=== PATIENT | female | born 1945 | race Caucasian/White ===

== ENCOUNTER 2017-07-27 10:06 | Emergency (ER) | payer MEDICARE ==
--- NOTE | 2017-07-27 10:29 | CT ---
CT BRAIN PERFORMED WITHOUT CONTRAST ENHANCEMENT: HISTORY: Right-sided weakness. Facial droop. Slurred speech started yesterday. FINDINGS: There is some mild ventricular and sulcal prominence. There are no signs of intracerebral hemorrhage or extraaxial fluid collections. The mastoid air cells and visualized sinuses are clear. IMPRESSION: No acute intracranial abnormalities. Findings telephoned to Dr. Rodriguez at 1018 hours. CODE CR POS: [facility]
[2017-07-27 10:32] LABS: #Basophils 0.1 thou/uL (0.0-0.2); #Eosinphils 0.1 thou/uL (0.0-0.7); #Monocytes 0.7 thou/uL (0.11-0.59); #Neutrophils 10.7 thou/uL (1.40-6.50); %Basophils 0.5 % (0.0-1.0); %Lymphocytes 20.6 % (21.0-51.0); %Monocytes 4.8 % (0.0-10.0); Mean Platelet Volume 8.2 fL (7.4-10.4); Red Blood Cell (RBC) Count 3.68 mill/uL (4.20-5.40); White Blood Cell (WBC) Count 14.6 thou/uL (4.8-10.8)
[2017-07-27 10:44] LABS: Prothrombin Time 13.5 SEC (12.0-14.7)
[2017-07-27 10:54] LABS: ALT (SGPT) 23 U/L (8-55); AST (SGOT) 20 U/L (5-34); Alkaline Phosphatase 88 U/L (40-150); Anion Gap 15 mmol/L (10-20); BUN (Urea Nitrogen) 22 mg/dL (9.8-20.1); Bilirubin, Total 0.6 mg/dL (0.2-1.2); Calc. Creatinine Clearance 0 mL/min (70-130); Calcium 8.8 mg/dL (7.8-10.44); Carbon Dioxide 21 mmol/L (23-31); Chloride 106 mmol/L (98-107); Estimated GFR-MDRD 60; Globulin 2.6 g/dL (2.4-3.5); Protein, Total 5.8 g/dL (6.0-8.3)
[2017-07-27 10:56] LABS: PTT 22.3 SEC (22.9-36.1)
[2017-07-27 10:58] LABS: Troponin I Less than 0.010 ng/mL (< 0.028)
--- NOTE | 2017-07-27 11:16 | RAD ---
PORTABLE CHEST 1 VIEW: Date: 07/27/17 Time: 1053 hours HISTORY: Slurred speech, left-sided weakness. FINDINGS: Comparison made with exam of 11/20/12. The heart size is borderline. No confluent areas of consolidation, pneumothorax, michael pulmonary enrike a, or pleural effusions are seen. IMPRESSION: No acute process. POS: [facility]
[2017-07-27 11:43] LABS: Bilirubin Negative (Negative); Blood, Urine Trace (Negative); Glucose, Urine (Dipstick) 100 mg/dL (Negative); Ketone, Urine Negative (Negative); Nitrite Negative (Negative); Protein, Urine (Dipstick) 100 mg/dL (Neg-Trace); Urobilinogen 0.2 mg/dL (0.2-1.0)
[2017-07-27 11:45] LABS: Bacteria/HPF None Seen HPF (None Seen); Squamous Epithelial 0-3 HPF (0-3); WBC/HPF 0-3 HPF (0-3)
[2017-07-27 12:00] LABS: Hyaline Casts/LPF 0-3 HYALINE CAST LPF (0-3 Hyaline); RBC/HPF 0-3 HPF (0-3); Renal Epithelial None Seen HPF (0-3); Transitional Epithelial NONE SEEN HPF (0-3)
[2017-07-27] MEDS ORDERED: Acetaminophen 1,000 MG in Premix Bag 1 BAG IVPB SCH (13:00)
--- NOTE | 2017-07-27 13:03 | CT ---
CT ANGIOGRAM THORAX WITH IV CONTRAST AND 3D RECONSTRUCTIONS CT ANGIOGRAM ABDOMEN WITH IV CONTRAST AND 3D RECONSTRUCTIONS CT PELVIS WITH IV CONTRAST DELAYED IMAGING: Date: 07/27/17 HISTORY: Patient with stroke-like symptoms with reported slurred speech 1 day ago. Patient now complains of we akness and does not having feeling in either leg. Patient also reports mid back pain, as well as bila teral lower extremity pain and abdominal pain when getting out of bed this morning. Patient denies re cent injury or fall. FINDINGS: CT ANGIOGRAM THORAX: There is dependent atelectasis bilaterally. There are a few scattered linear densities, probably rela aries to mild atelectasis, as well. No discrete pulmonary nodule, mass, or pleural effusion is present. Thoracic aorta is normal in caliber without evidence of an aortic dissection. There is normal arrange ment of the great vessels at the aortic arch which are patent. No filling defects are seen in the pulmonary arteries to suggest a pulmonary embolus. There is no evidence of lymphadenopathy and mediastinal structures have a normal CT appearance. CT ANGIOGRAM ABDOMEN: The abdominal aorta is normal in caliber. There are atherosclerotic vascular calcifications in the ab dominal aorta, greater involving the infrarenal abdominal aorta. The celiac artery demonstrates mild atherosclerotic plaque at the origin and proximally. However, there is generalized small caliber of t he celiac and superior mesenteric arteries which are otherwise patent. Origin of the LOU is not well seen due to dense atherosclerotic vascular calcifications. There are single renal arteries bilaterall y with mild atherosclerotic plaque. No significant focal stenosis is seen involving either renal geno ry. The bilateral common iliac, as well as most proximal visualized external iliac arteries are paten t. There is mild atherosclerotic irregularity involving each proximal internal iliac artery. A [employer] IVC filter is noted in place with the tip at the level of the renal veins. There is reflux of contrast into the hepatic IVC with reflux of contrast in the IVC extending to the level of the IV C filter. The IVC proximal to the IVC filter which involves the hepatic and subhepatic IVC is small i n caliber. The IVC at the level of the IVC filter is distended, and inferior to the level of the IVC in the infrarenal IVC, the IVC is enlarged and demonstrates heterogeneity. There is also mild enlarge ment of the common iliac veins. Findings could be related to thrombus within the IVC below the level of the IVC filter and extending into the common iliac veins. The burnham of the IVC and common iliac ve ins also appear mildly thickened. Again, this may be related to thrombus, but hemorrhage within the w all of the IVC is not entirely excluded. In addition, there is increased density fluid seen in a payal caval location, predominantly anterior and to the right of the IVC anterior to the right psoas muscle . Some of the increased density material does extend anterior to the abdominal aorta. However, these findings do not appear to represent an aortic injury and the aorta densely enhances with the contrast . The increased density fluid is most likely related to hemorrhage. There is a subtle area of slight enhancement in the inferior aspect of the liver which is not seen on delayed images and is probably related to a transient hepatic arterial difference due to phase of im aging. Gallbladder is not visualized and probably related to prior cholecystectomy. Spleen and bilateral adrenal glands demonstrate a normal CT appearance. There are subcentimeter, too small to characterize, hypodense lesions in each kidney. There is a midline fat-containing ventral abdominal wall hernia. CT PELVIS (DELAYED IMAGING): There is contrast seen in a decompressed urinary bladder. Wolfe catheter is noted in place. Uterus is not visualized, probably related to prior hysterectomy. IMPRESSION: 1. Enlargement and heterogeneity of the IVC inferior to the level of the IVC filter and renal veins with enlargement and heterogeneity of each common iliac vein. There is thickening involving the wall of the IVC as well. Findings may be related to thrombus within the IVC and common iliac veins, althou gh the thickening of the wall could potentially be related to associated hemorrhage. There is hemorrh age within the retroperitoneum in a pericaval location. While the hemorrhage extends anterior to the abdominal aorta, the etiology for the hemorrhage is not thought to arise from the abdominal aorta. Th e abdominal aorta is densely opacified, and there is no extravasation of contrast or aneurysmal dilat ation of the abdominal aorta is present. 2. No evidence of a dissection or aneurysm involving the thoracic or abdominal aorta. Atheroscleroti c plaque involves the abdominal aorta. 3. Hiatal hernia with what appear to be postsurgical changes at the level of the hiatal hernia, and findings may be related to fundoplication type procedure. 4. Fat-containing supraumbilical ventral abdominal wall hernia. 5. Subcentimeter, too small to characterize, hypodense lesions in each kidney. 6. No CT evidence of pulmonary embolus. 7. IVC filter noted in place. There are linear areas of increased density seen within the IVC filter which have a similar density to the adjacent struts of the IVC filter, but are of uncertain etiology . Above findings discussed with Dr. Wu in the emergency department on 07/27/17 at 1122 hours. CODE CR.
--- NOTE | 2017-07-27 14:57 | MRI ---
MRI THORACIC SPINE: HISTORY: Low back pain. TECHNIQUE: Multiplanar, multisequence noncontrast MRI of the thoracic spine obtained. FINDINGS: Images demonstrate the spinal cord to be unremarkable. No evidence of cord abnormality is seen. The re is a mid thoracic left paracentral disk protrusion minimally but not significantly compressing the thecal sac, with adjacent areas of endplate sclerotic signal changes. No significant evidence of ce ntral stenosis or significant neural foraminal narrowing is seen. No other significant thoracic spin e abnormalities seen. No evidence of acute or old compression fracture seen. IMPRESSION: Small left paracentral disk protrusion in the left paracentral mid thoracic region. No significant e vidence of central stenosis or significant neural foraminal narrowing is seen. This left paracentral protrusion appears to be at the T8-T9 level. POS: NE[facility]A
[2017-07-27] MEDS ORDERED: DOPamine 400 MG/D5W 250 ML 250 ML ONE (15:03)
[2017-07-27 16:05] LABS: #Eosinphils 0.3 thou/uL (0.0-0.7); #Lymphocytes 1.2 thou/uL (1.20-3.40); #Monocytes 0.7 thou/uL (0.11-0.59); #Neutrophils 17.4 thou/uL (1.40-6.50); %Basophils 0.1 % (0.0-1.0); %Eosinophils 1.3 % (0.0-10.0); %Lymphocytes 6.1 % (21.0-51.0); %Monocytes 3.7 % (0.0-10.0); Hematocrit 31.7 % (36.0-47.0); Mean Platelet Volume 8.5 fL (7.4-10.4); Red Blood Cell (RBC) Count 3.16 mill/uL (4.20-5.40); White Blood Cell (WBC) Count 19.6 thou/uL (4.8-10.8)
[2017-07-27 16:20] LABS: Anion Gap 13 mmol/L (-14-95); Lactate 2.94 mmol/L (0.50-2.20); POC Est. GFR-MDRD-African-Amer Greater than 60; POC Estimated GFR-MDRD Greater than 60; T. Carbon Dioxide 13.7 mmol/L (1.0-85.0); pH (Venous) 7.418 (7.35-7.45); vO2 Saturation-calc 96.2 % (0.0-100.0)
[2017-07-27] MEDS ORDERED: Norepinephrine 8 MG/0.9% NS 250 ML ONE (16:49)
--- NOTE | 2017-07-27 17:00 | ULT ---
HISTORY: Bilateral lower extremity pain and swelling. Multiple longitudinal and transverse images of the right and left lower extremity venous system obtai britney using a multihertz linear array transducer. Real time color flow and spectral waveform doppler an alysis demonstrates complete filling of the right and left common femoral, superficial femoral, and p opliteal veins with extension of clot into the right and left post trifurcation veins. This is compat ible with extensive and massive bilateral lower extremity deep venous thrombosis. Dr. Mas is awar e of these findings. IMPRESSION: Extensive massive bilateral lower extremity deep venous thrombosis. POS: [facility]
[2017-07-27 17:03] LABS: Oxyhemoglobin 92.2 % (94.0-97.0); Sodium 139 mmol/L (135-148)
[2017-07-27 17:05] LABS: Mode RA; Modified Allen's Test POSITIVE; Vent NO
--- NOTE | 2017-07-27 17:09 | CON ---
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 ER reports that initially on arrival the patient's lower extremities were cool, mottled with decreased pulses, therefore , CTA of the chest, abdomen, and pelvis which was done. CTA was notable for large retroperitoneal hematoma. There was also enlargement/thickening inferior to the IVC, which could indicate thrombus. No dissection or aneurysm was seen today abdominal or thoracic aorta. The patient denies any recent trauma. She is not currently on any blood thinners. Further evaluation also was notable for patient's hypotension 80s/50s and there was concern of possible underlying spinal shock. She had an elevated lactic acid of 4.2. Her INR was 1.0 and her platelets were normal at 227. I saw the patient in the ER. She was uncomfortable and complaining of low back and diffuse leg pain. She had weakness throughout the lower extremities 2/5. She was hyperreflexic throughout the lower extremities. The legs were cool with mottled appearance and also difficulty palpating any peripheral pulses in the lower extremities. She had negative clonus. PAST MEDICAL HISTORY: Asthma, anxiety, DVTs with IVC filter, hypertension, ulcers, diverticulitis. PAST SURGICAL HISTORY: Hernia repair, hysterectomy, IVC filter, cholecystectomy. FAMILY HISTORY: Noncontributory. SOCIAL HISTORY: The patient does not smoke, drink or use any drugs. ALLERGIES: She is allergic to CODEINE AND MORPHINE. PHYSICAL EXAMINATION: VITAL SIGNS: Blood pressure 62/48, pulse is 81, respiration rate is 17, temperature is 97.3. The patient is 98% on room air. HEAD: Normocephalic, atraumatic. EYES: PERRLA. Extraocular movements are intact. ENT: Oral mucosa is pink, intact and moist. NECK: Nontender to palpation. Free active range of motion. No meningismus or nuchal rigidity. RESPIRATORY: The patient is breathing comfortably. No evidence of respiratory distress. CARDIOVASCULAR: Regular rate and rhythm. BACK: Free active range of motion of upper extremities, 5/5 strength upper extremities. Peripheral pulses are symmetric and intact in the upper extremities. Lower extremities, weakness 2/5. Lower extremities are cool with mottled appearance, unable to palpate peripheral pulses in the lower extremities. NEUROLOGIC: She is A and O x4. She has normal speech. She has weakness in the lower extremities. She has sensation changes from approximately the knee down. Negative clonus. ASSESSMENT AND PLAN: At this point, the etiology is unclear for the patient's worsening back pain with associated leg pain and leg weakness. At this point, the etiology for the patient's symptoms is unclear but seems more likely a vascular etiology rather than spinal. Tspine MRI was negative. Lspine was not completed. ER is going to consult CV surgery for additional opinions. They are also considering transfer. We continue to assist in any way needed. MATHEW
[2017-07-27] MEDS ORDERED: Calcium Gluc 4.6 MEQ/10 ML (100 MG/ML) ONE (18:17)
[2017-07-27] MEDS ORDERED: Hydrocortisone Sod Succ/PF 100 mg/2 ml Vial ONE (18:17)
[2017-07-27] MEDS ORDERED: Meropenem 1 GM, Admixture Fee 1 EACH in Sterile Water 20 ML SLOW IVP SCH (19:00)
--- NOTE | 2017-07-27 19:09 | RAD ---
SUPINE PORTABLE CHEST ONE VIEW: 07/27/17 HISTORY: 72-year-old female with history of injury with right jugulovenous catheter placement. There is a right jugular venous catheter with the tip extending down into the right superior vena cav a. No pneumothorax or pleural effusion. Minimal increased linear and interstitial markings bilaterall y, stable from the earlier 07/27/17 study. IMPRESSION: Right jugular venous catheter placement without pneumothorax or pleural effusion. POS: [facility]
== END 2017-07-27 19:15 | disposition short-term general hospital (02) ==
LOC: ERS 10:06
DX: R57.8 Other shock (principal); I82.220 Acute embolism and thrombosis of inferior vena cava; K66.1 Hemoperitoneum; E78.5 Hyperlipidemia, unspecified; I10 Essential (primary) hypertension; Z79.899 Other long term (current) drug therapy
CPT/HCPCS: 36430; 36556; 51702; 70450; 71010; 71275; 72146; 80053; 82330; 82435; 82553; 82565; 82803; 82805; 82947; 82962; 83605; 83690; 83735; 83880; 84132; 84295; 84484; 85014; 85025 ×2; 85610; 85730; 86850; 86900; 86901; 86920; 87040; 87086; 87149 ×2; 93005; 93970; 96361; 96365; 96366; 96367; 96368; 96375; 99291; 99292; P9016; P9035; P9048; 36415; 36416; 81003; 81015; A4216; J0131; J1265; J1720; J2185; J3370

== ENCOUNTER 2018-06-19 11:22 | Outpatient (CLI) | payer MEDICARE ==
--- NOTE | 2018-06-19 15:30 | RAD ---
THORACIC SPINE THREE VIEWS: INDICATIONS: Back pain. COMPARISON: None. FINDINGS: There is mild multilevel spondylosis of the thoracic spine. There is interstitial prominence seen wi thin the visualized lungs, which may reflect fibrotic change. There is an IVC filter seen within the upper abdomen. There is diffuse osteopenia. There is a moderate sized hiatal hernia. IMPRESSION: 1. Mild spondylosis of the thoracic spine. No definite acute fracture or subluxation is demonstrate d. 2. Hiatal hernia. 3. Inferior vena cava filter. POS: NE[facility]A
--- NOTE | 2018-06-19 16:07 | RAD ---
TWO VIEWS LUMBAR SPINE: 06/19/18 INDICATION: Low back injury and pain. FINDINGS: There is an IVC filter seen right of midline at L2. There is mild multilevel disc degenerative diseas e. There is slight retrolisthesis of L3 on L4. There is mild facet joint degenerative change most sev ere at L4-5 and L5-S1. There are mild degenerative changes of the SI joints. IMPRESSION: 1. Mild to moderate spondylosis of the lumbar spine. 2. Slight retrolisthesis of L3 on L4 which is likely degenerative in nature. 3. No acute fracture or subluxation demonstrated. 4. IVC filter. POS: [facility]
== END 2018-06-19 11:23 | disposition home or self-care (01) ==
LOC: BICRAD 11:22
DX: M54.9 Dorsalgia, unspecified (principal); I10 Essential (primary) hypertension; I48.91 Unspecified atrial fibrillation; M47.816 Spondylosis without myelopathy or radiculopathy, lumbar region; M43.16 Spondylolisthesis, lumbar region; M47.814 Spondylosis without myelopathy or radiculopathy, thoracic region; K44.9 Diaphragmatic hernia without obstruction or gangrene
CPT/HCPCS: 72070; 72100

== ENCOUNTER 2019-07-22 14:45 | Outpatient (CLI) | payer MEDICARE ==
--- NOTE | 2019-07-22 15:29 | BD ---
BONE MINERAL DENSITY: HISTORY: Postmenopausal female. Osteoporosis. COMPARISON: None. DISCUSSION: Evaluation of the left hip and lumbar spine was performed utilizing DEXA Hologic bone densitometer. The study is technically adequate. The patient's fracture risk is compared to an age-matched control. The patient denies prior surgery/fracture of the spine, hips or forearm. FINDINGS: HIP BMD (g/cm2) T-SCORE Z-SCORE LEFT HIP FEMORAL NECK 0.585 -2.4 -0.4 LEFT TOTAL HIP 0.834 -0.9 0.7 LUMBAR SPINE BMD (g/cm2) T-SCORE Z-SCORE L1 0.712 -2.5 -0.5 L2 0.744 -2.6 -0.4 L3 0.736 -3.2 -0.8 L4 0.779 -2.6 -0.2 TOTAL 0.743 -2.8 -0.5. IMPRESSION: 1. Lumbar spine WHO classification is osteoporosis. The fracture risk is high. 2. Right femoral WHO classification is osteopenia. 3. Fracture risk not reported because some T-scores are at or below -2.5. T-SCORE: NL = -1 or higher Osteopenia = -1 to -2.5 Osteoporosis = -2.5 or lower Z-SCORE: < - 1.5 concerning for pathology [employer] evaluation for secondary causes of low bone mineral density may be appropriate.elate cl inically for the necessity and timing of the next bone mineral density study. National Osteoporosis Foundation recommendations: Initiate therapy to reduce fracture risk in postmenopausal women with -BMD t-scores below -2 by central DXA with no risk factors -BMD t-scores below -1.5 by central DXA with one or more risk factors (first deg relative with hip fr acture, prior personal fracture, low body weight, smoking) -A prior vertebral or hip fracture AACE (Clinical Endocrinology) recommends treating the following: Postmenopausal women who have osteoporosis as diagnosed by fragility fractures or t scores -2.5 or be low Postmenopausal women who have risk factors (including fh of hip fracture, low body weight, smoking, r isk of falling, high bone turnover, advancing age) and borderline low BMD T scores of -1.5 or below Adequate intake of calcium (at least 1200mg/day) and vitamin D (400-800 IU/day). Regular weight bearing and muscle - strengthening exercises Avoid smoking and excessive alcohol Transcribed Date/Time: 07/22/2019 3:44 PM
== END 2019-07-22 14:46 | disposition home or self-care (01) ==
LOC: BICMAMMO 14:45
PROVIDERS: ATTEND Nurse Practitioner Family
DX: Z13.820 Encounter for screening for osteoporosis (principal); E55.9 Vitamin D deficiency, unspecified; M81.0 Age-related osteoporosis without current pathological fracture; M85.851 Other specified disorders of bone density and structure, right thigh
CPT/HCPCS: 77080

== ENCOUNTER 2019-09-04 14:46 | Outpatient (CLI) | payer MEDICARE ==
--- NOTE | 2019-09-04 15:16 | RAD ---
EXAM: Two views chest PROVIDED CLINICAL HISTORY: Abnormal lung sounds COMPARISON: Clinical 22/02/2017. FINDINGS: Cardiac silhouette is borderline enlarged. Pulmonary vasculature is within normal limits. No consolid ation or pleural effusion is seen. Hiatal hernia is again seen in the retrocardiac region. The right internal jugular vein central venous catheter has been removed. Mild degenerative changes are s een in the spine. No other interval change. IMPRESSION: 1. No acute cardiopulmonary process. 2. Cardiomegaly. 3. Hiatal hernia.
== END 2019-09-04 14:47 | disposition home or self-care (01) ==
LOC: RAD-FRANK 14:46
PROVIDERS: ATTEND Nurse Practitioner Family
DX: I70.0 Atherosclerosis of aorta (principal); I10 Essential (primary) hypertension; R09.89 Other specified symptoms and signs involving the circulatory and respiratory systems; I51.7 Cardiomegaly; K44.9 Diaphragmatic hernia without obstruction or gangrene
CPT/HCPCS: 71046

== ENCOUNTER 2020-02-25 10:50 | Outpatient (CLI) | payer MEDICARE ==
[~2020-02-25 10:50] MED LIST: Iopamidol-370 76% 500 ML 1 ML ONE
--- NOTE | 2020-02-25 12:06 | CT ---
CT CHEST WITH IV CONTRAST CT ABDOMEN WITH IV CONTRAST CT PELVIS WITH IV CONTRAST: HISTORY: A 75-year-old female with difficulty breathing, abdominal pain. FINDINGS: Comparison is made with the CTA aorta of 07/27/2017. No mediastinal, hilar, or axillary mass or lymphadenopathy is seen. Coronary artery calcification is present. No aneurysmal dilatation of the thoracoabdominal aorta is seen. An IVC filter is present. No pleural or pericardial effusions are identified. No pneumothoraces, focal areas of consolidation, lung nodules, or masses are seen. A hiatal hernia is again seen with postop changes of fundoplication. The spleen, pancreas, adrenal g lands, and kidneys are normal. No free air, free fluid, or lymphadenopathy is seen in the abdomen or pelvis. The small bowel loops are not abnormally dilated. The patient is post hysterectomy. There is colonic diverticulosis witho ut diverticulitis. No osteolytic or osteoblastic lesions are seen. There are degenerative changes in the thoracolumbar spine. Fat-containing supraumbilical ventral abdominal wall hernia is again seen. IMPRESSION: 1. Atherosclerotic vascular disease. 2. Fatty liver. 3. Colonic diverticulosis. 4. Fat-containing supraumbilical ventral abdominal wall hernia. 5. Hiatal hernia with postop changes of fundoplication. POS: OFF
== END 2020-02-25 10:51 | disposition home or self-care (01) ==
LOC: BICCT 10:50
PROVIDERS: ATTEND Nurse Practitioner Family
DX: R06.02 Shortness of breath (principal); I70.0 Atherosclerosis of aorta; K44.9 Diaphragmatic hernia without obstruction or gangrene; R09.89 Other specified symptoms and signs involving the circulatory and respiratory systems; K57.30 Diverticulosis of large intestine without perforation or abscess without bleeding; K76.0 Fatty (change of) liver, not elsewhere classified; K43.9 Ventral hernia without obstruction or gangrene; Z98.890 Other specified postprocedural states; Z86.718 Personal history of other venous thrombosis and embolism
CPT/HCPCS: 71260; 74177; Q9967

== ENCOUNTER 2020-07-26 13:27 | Outpatient (CLI) | payer MEDICARE ==
--- NOTE | 2020-07-26 14:35 | CT ---
EXAM: CT Lumbar Spine WO Con PROVIDED CLINICAL HISTORY: Lumbar radiculopathy COMPARISON: None FINDINGS: 5 nonrib-bearing lumbar-type vertebral bodies are demonstrated. There is slight retrolisthesis of L3 on L4. Lumbar alignment appears otherwise normal. Vertebral body heights appear preserved. Heterogeneous appearance to the posterior aspect of the right medial iliac bone is stable when compar ed with multiple examinations dating back to 07/27/2017. No concerning lytic or blastic bony lesions are evident. Vascular calcifications are seen. IVC filter is noted. Stable subcentimeter exop hytic density arising from posterior right kidney. L1-L2: There is no significant central canal or foraminal narrowing apparent. L2-L3: There is no significant central canal or foraminal narrowing apparent. L3-L4: There is no significant central canal or foraminal narrowing apparent. L4-L5: There is no significant central canal or foraminal narrowing apparent. L5-S1: Mild facet arthrosis left of midline and broad-based disc bulge with accompanying osteophyte in the l eft foraminal region combine to produce moderate left foraminal narrowing. There is no significant central canal or right foraminal narrowing apparent. IMPRESSION: Moderate foraminal narrowing left of midline at L5-S1.
== END 2020-07-26 13:28 | disposition home or self-care (01) ==
LOC: BICCT 13:27
PROVIDERS: ATTEND Nurse Practitioner Family
DX: M47.814 Spondylosis without myelopathy or radiculopathy, thoracic region (principal); M48.07 Spinal stenosis, lumbosacral region
CPT/HCPCS: 72131

== ENCOUNTER 2020-10-11 13:35 | Outpatient (CLI) | payer MEDICARE | END 2020-10-11 13:36 | disposition home or self-care (01) | LOC: BICULT 13:35 | PROVIDERS: ATTEND Nurse Practitioner Family | DX: N32.81 Overactive bladder (principal); L29.8 Other pruritus; R82.90 Unspecified abnormal findings in urine; R89.9 Unspecified abnormal finding in specimens from other organs, systems and tissues | CPT/HCPCS: 76770 ==

== ENCOUNTER 2021-09-29 15:54 | Outpatient (CLI) | payer MEDICARE | END 2021-09-29 15:55 | disposition home or self-care (01) | LOC: BICRAD 15:54 | PROVIDERS: ATTEND Nurse Practitioner Family | DX: J45.22 Mild intermittent asthma with status asthmaticus (principal); I11.9 Hypertensive heart disease without heart failure; R63.5 Abnormal weight gain; I82.409 Acute embolism and thrombosis of unspecified deep veins of unspecified lower extremity; K44.9 Diaphragmatic hernia without obstruction or gangrene | CPT/HCPCS: 36415; 71046; 80053; 80061; 81001; 83036; 83880; 84443; 85025 ==

== ENCOUNTER 2021-10-10 13:45 | Outpatient (CLI) | payer MEDICARE | END 2021-10-10 13:46 | disposition home or self-care (01) | LOC: BICULT 13:45 | PROVIDERS: ATTEND Nurse Practitioner Family | DX: M79.661 Pain in right lower leg (principal); D68.2 Hereditary deficiency of other clotting factors; I70.0 Atherosclerosis of aorta; G89.4 Chronic pain syndrome; Z86.718 Personal history of other venous thrombosis and embolism ==

== ENCOUNTER 2021-12-21 13:37 | Outpatient (CLI) | payer MEDICARE | END 2021-12-21 13:38 | disposition home or self-care (01) | LOC: BICRAD 13:37 | PROVIDERS: ATTEND Nurse Practitioner Family | DX: M25.562 Pain in left knee (principal) ==